=== PATIENT | female | born 1980 | race Caucasian/White ===

== ENCOUNTER 2016-07-31 19:19 | Emergency (ER) | payer OTHER ==
[2016-07-31 19:29] VITALS: RESP 18; TEMP 97.6
[2016-07-31] MEDS ORDERED: ONDANSETRON HCL 4 MG/2 ML SOL IV ONE (19:46)
[2016-07-31] MEDS ORDERED: ONDANSETRON HCL 4 MG/2 ML SOL ONE (19:47)
[2016-07-31] MEDS ORDERED: SODIUM CHLORIDE 0.9% 1000ML 1,000 ML IV ONE (19:47)
[2016-07-31 20:01] VITALS: BP 138/97
[2016-07-31 21:31] VITALS: PULSE 89; O2SAT 99
== END 2016-07-31 21:20 | disposition home or self-care (01) ==
LOC: ED 19:19
DX: E86.0 Dehydration (principal); R11.0 Nausea
CPT/HCPCS: 99284 ×2; J2405; 96365; 96374; 99283

== ENCOUNTER 2016-09-18 21:09 | Emergency (ER) | payer OTHER ==
[2016-09-18 21:23] VITALS: TEMP 98
[2016-09-18 22:14] LABS: BASOPHILS % (AUTO) 1 % (0-3); EOSINOPHILS % (AUTO) 2 % (0-9); HEMATOCRIT 42 % (35-47); MEAN CORPUSCULAR HGB CONC 32.9 gm/dl (32.0-36.0); MONOCYTES % (AUTO) 8.5 % (0-12); NEUTROPHILS % (AUTO) 54.5 % (37-80)
[2016-09-18 22:16] LABS: MEAN CORPUSCULAR VOLUME 81 fL (81-99)
[2016-09-18 22:36] LABS: ALBUMIN 3.5 gm/dl (3.4-5.0); ALT 41 IU/L (14-63); GLOM FILT RATE 69 mL/min (>60); POTASSIUM 3.8 mMol/L (3.5-5.1); SODIUM 139 mMol/L (136-145)
[2016-09-18 23:42] VITALS: BP 142/83; PULSE 102; RESP 18; O2SAT 96
== END 2016-09-18 22:56 | disposition home or self-care (01) ==
LOC: ED 21:09
DX: R00.2 Palpitations (principal); R42 Dizziness and giddiness; R29.898 Other symptoms and signs involving the musculoskeletal system
CPT/HCPCS: 36415; 80053; 84484; 85025; 93005; 99282; 99284

== ENCOUNTER 2017-02-04 19:12 | Emergency (ER) | payer OTHER ==
[2017-02-04 19:42] VITALS: TEMP 99.1
[2017-02-04 19:55] LABS: BASOPHILS % (AUTO) 1 % (0-3); EOSINOPHILS % (AUTO) 1 % (0-9); HEMATOCRIT 40 % (35-47); MEAN CORPUSCULAR HGB CONC 33.2 gm/dl (32.0-36.0); MEAN CORPUSCULAR VOLUME 82 fL (81-99); NEUTROPHILS % (AUTO) 61.1 % (37-80)
[2017-02-04 20:22] LABS: ALBUMIN 3.3 gm/dl (3.4-5.0); ALT 48 IU/L (14-63); CALCIUM 9.1 mg/dl (8.5-10.1); GLOM FILT RATE 71 mL/min (>60); POTASSIUM 3.5 mMol/L (3.5-5.1); SODIUM 137 mMol/L (136-145); THYROID STIMULATING HORMONE 1.561 uIU/ml (0.358-3.740)
[2017-02-04 21:00] VITALS: BP 125/86; PULSE 88; RESP 19; O2SAT 100
== END 2017-02-04 20:54 | disposition home or self-care (01) ==
LOC: ED 19:12
DX: F41.9 Anxiety disorder, unspecified (principal); R00.0 Tachycardia, unspecified; R10.11 Right upper quadrant pain
CPT/HCPCS: 36415; 80053; 84443; 84484; 85025; 93005; 99283

== ENCOUNTER 2017-06-27 14:56 | Emergency (ER) | payer OTHER ==
[2017-06-27 15:12] VITALS: RESP 20; TEMP 97.4; O2SAT 99
[2017-06-27] MEDS ORDERED: ONDANSETRON HCL 4 MG/2 ML 4 MG in SODIUM CHLORIDE 0.9% 100 ML 100 ML IV ONE (15:38)
[2017-06-27] MEDS ORDERED: SODIUM CHLORIDE 0.9% 1000ML 1,000 ML IV ONE (15:38)
[2017-06-27] MEDS ORDERED: ONDANSETRON HCL 4 MG/2 ML SOL IV ONE (15:40)
[2017-06-27] MEDS ORDERED: ONDANSETRON HCL 4 MG/2 ML SOL ONE (15:43)
[2017-06-27 15:51] LABS: BASOPHILS % (AUTO) 1 % (0-3); EOSINOPHILS % (AUTO) 1 % (0-9); HEMATOCRIT 43 % (35-47); HEMOGLOBIN 14.2 gm/dl (12.0-15.5); LYMPHOCYTES % (AUTO) 20.6 % (10-50); MEAN CORPUSCULAR HEMOGLOBIN 27.3 pg (27.0-32.0); MEAN CORPUSCULAR HGB CONC 33.2 gm/dl (32.0-36.0); MEAN CORPUSCULAR VOLUME 82 fL (81-99); NEUTROPHILS % (AUTO) 69.9 % (37-80)
[2017-06-27 16:14] LABS: ALBUMIN 3.8 gm/dl (3.4-5.0); BILIRUBIN,TOTAL 0.5 mg/dl (0.2-1.0); CARBON DIOXIDE 26.1 mEq/L (21-32); CREATININE 0.74 mg/dl (0.60-1.00); POTASSIUM 3.7 mMol/L (3.5-5.1); THYROID STIMULATING HORMONE 1.167 uIU/ml (0.358-3.740); TOTAL PROTEIN 7.7 gm/dl (6.4-8.2)
[2017-06-27 17:45] VITALS: BP 128/92; PULSE 76
== END 2017-06-27 17:39 | disposition home or self-care (01) ==
LOC: ED 14:56
DX: R11.2 Nausea with vomiting, unspecified (principal)
CPT/HCPCS: 36415; 80053; 84443; 84703; 85025; 99284; J2405

== ENCOUNTER 2018-03-14 17:53 | Emergency (ER) | payer OTHER ==
[2018-03-14] MEDS ORDERED: LORAZEPAM 0.5 MG TAB PO ONE (18:46)
[2018-03-14] MEDS ORDERED: LORAZEPAM 0.5 MG TAB ONE (18:47)
[2018-03-14 18:51] VITALS: TEMP 98.8
[2018-03-14] MEDS ORDERED: METOPROLOL SUCCINATE 50 MG ER TAB PO SCH (19:15)
[2018-03-14] MEDS ORDERED: METOPROLOL TARTRATE 25 MG TAB ONE (19:24)
[2018-03-14] MEDS ORDERED: METOPROLOL TARTRATE 25 MG TAB PO ONE (19:26)
[2018-03-14 19:32] VITALS: O2SAT 98
[2018-03-14 20:36] VITALS: BP 132/98; PULSE 74; RESP 16
== END 2018-03-14 20:32 | disposition home or self-care (01) | DRG 880 ==
LOC: ED 17:53
DX: F41.9 Anxiety disorder, unspecified (principal)
CPT/HCPCS: 99282; 99283; A9270-GY